=== PATIENT | female | born 1985 | race Hispanic/Latino ===

== ENCOUNTER 2022-03-15 21:18 | Emergency (ER) | payer SELFPAY ==
[2022-03-15] MEDS ORDERED: NA CHLORIDE 0.9% 1,000 ML ONE (22:01)
[2022-03-15 22:43] LABS: Absolute Lymphocytes (CBC) 2.6 K/uL (0.7-4.9); Lymphocytes % 44.8 % (15.3-44.8); MCV 82.3 fL (80-100); MPV 8.7 fL (7.6-11.3); RBC Red Blood Cell Count 4.61 M/uL (3.86-4.86)
[2022-03-15 22:54] LABS: Bilirubin Total 0.4 mg/dL (0.2-1.0); Potassium 3.8 mmol/L (3.5-5.1); Protein, Total 6.4 g/dL (6.4-8.2)
--- NOTE | 2022-03-16 00:10 | ER ---
Nurse's Notes [facility] Name: Magda Adams Age: 36 yrs Sex: Female : 1985 Arrival Date: 03/15/2022 Time: 21:23 Bed 4 Private MD: Diagnosis: Viral infection, unspecified;Upper abdominal pain, unspecified Presentation: 03/15 21:26 Chief complaint: Patient states: STOMACH PAIN FOR LONG WHILE, SHE TESTED NEGATIVE AT [address] FOR COVID DUE TO CONGESTION AND A SEVERE HEADACHE. Coronavirus screen: Vaccine status: Patient reports receiving the 2nd dose of the covid vaccine. Client denies travel out of the [place] in the last 14 days. congestion, headache, Client presents with at least one sign or symptom that may indicate coronavirus-19. Standard/surgical mask placed on the client. Ebola Screen: Patient negative for fever greater than or equal to 101.5 degrees Fahrenheit, and additional compatible Ebola Virus Disease symptoms. Initial Sepsis Screen: Does the patient meet any 2 criteria? No. Patient's initial sepsis screen is negative. Does the patient have a suspected source of infection? No. Patient's initial sepsis screen is negative. Risk Assessment: Do you want to hurt yourself or someone else? Patient reports no desire to harm self or others. Onset of symptoms is unknown. 21:26 Method Of Arrival: Ambulatory located within [facility] 21:26 Acuity: SHANNON 3 located within [facility] Triage Assessment: 21:31 General: Appears in no apparent distress. Behavior is calm, cooperative, appropriate located within [facility] for age. GI: Reports upper abdominal pain, nausea. Historical: - Allergies: 21:29 Aspirin; located within [facility] 21:29 Codeine; located within [facility] 21:29 Augmentin; located within [facility] - Home Meds: 21:29 phentermine 37.5 mg oral tab 1 tab once daily [Active]; alprazolam 1 mg/mL Oral conc 1 bh1 mL 3 times per day [Active]; Vitamin D 1 TAB Oral 50,000 unit daily [Active]; B12 Active 1,000 mcg oral chew [Active]; - PMHx: 21:29 Anxiety; located within [facility] - PSHx: 21:29 Cholecystectomy; section; located within [facility] - Immunization history:: Adult Immunizations up to date, Client reports receiving the 2nd dose of the Covid vaccine. - Social history:: Smoking status: Patient reports the use of cigarette tobacco products, smokes one-half pack cigarettes per day. Screenin:50 Abuse screen: Denies threats or abuse. Denies injuries from another. Nutritional aa9 screening: No deficits noted. Tuberculosis screening: No symptoms or risk factors identified. Fall Risk None identified. Assessment: 21:44 General: Appears in no apparent distress. uncomfortable, Behavior is calm, cooperative, aa9 anxious, States " I had 3 white claws yesterday, I think that made the pain worse. I took 4 200 mg ibuprofen at 4 PM today, It made the pain tolerable, it is now coming back again.". Pain: Complains of pain in right upper quadrant Pain currently is 7 out of 10 on a pain scale. Is chronic, Alleviated by not eating. 03/16 00:36 GI: Bowel sounds present X 4 quads. kl 00:36 GI: Abd is non tender. kl Vital Signs: 03/15 21:26 BP 126 / 44; Pulse 11; Resp 20; Temp 97.7; Pulse Ox 100% on R/A; Weight 106.59 kg; bh1 Height 5 ft. 4 in. (162.56 cm); Pain 7/10; 21:49 BP 122 / 66; Pulse 108; Resp 15 S; Pulse Ox 100% on R/A; Weight 106.59 kg (R); Height 5 aa9 ft. 2 in. (157.48 cm) (R); Pain 7/10; 03/16 00:34 BP 98 / 63; Pulse 74; Resp 16; Pulse Ox 99% on R/A; Pain 3/10; kl 03/15 21:49 Body Mass Index 42.98 (106.59 kg, 157.48 cm) aa9 ED Course: 03/15 21:23 Patient arrived in ED. bp1 21:29 Triage completed. bh1 21:32 Arm band placed on right wrist. bh1 21:33 May Harris FNP-C [facility]. kb 21:33 Rickey Odom MD is Attending Physician. kb 21:35 Jann Tapia, SEGUNDO is Primary Nurse. as6 21:50 Patient has correct armband on for positive identification. Bed in low position. Call aa9 light in reach. Side rails up X2. 22:25 Inserted saline lock: 18 gauge in right antecubital area, using aseptic technique. as6 Blood collected. 22:25 CBC with Diff Sent. 22:25 CMP Sent. as6 22:25 Lipase Sent. as 22:25 Strep Sent. as6 22:25 Flu Sent. as6 22: [place] Screen Profile Sent. as 22:25 COVID-19 SARS RT PCR (Document "Date of Onset" if Symptomatic) Sent. as6 03/16 00:34 No provider procedures requiring assistance completed. IV discontinued, intact, kl bleeding controlled, No redness/swelling at site. Pressure dressing applied. Administered Medications: 03/15 22:25 Drug: NS 0.9% 1000 ml Route: IV; Rate: 1 bolus; Site: right antecubital; as6 03/16 00:30 Drug: HYDROcodone-acetaminophen 5 mg-325 mg 1 tabs Route: PO; kl 00:35 Follow up: Response: No adverse reaction kl Medication: 00:36 VIS not applicable for this client. Outcome: 00:08 Discharge ordered by . kb 00:36 Discharged to home ambulatory. kl 00:36 Condition: improved 00:36 Discharge instructions given to patient, Instructed on discharge instructions, follow up and referral plans. Demonstrated understanding of instructions, follow-up care. 00:37 Patient left the ED. Signatures: May Harris, MILL HAND-C MILL HAND-CkBina Samson RN RN Loreto De Luna Ashby, RN RN as6 Monique Mccurdy RN RN aa9 Hicks, Barbara, RN RN 1 Corrections: (The following items were deleted from the chart) 03/15 21:46 21:44 GI: aa9 aa9 21:49 21:44 General: Appears in no apparent distress. uncomfortable, Behavior is calm, aa9 cooperative, anxious, aa9
--- NOTE | 2022-03-16 00:10 | EDPHYS ---
Physician Documentation [facility] Name: Magda Adams Age: 36 yrs Sex: Female : 1985 Arrival Date: 03/15/2022 Time: 21:23 Bed 4 Private MD: ED Physician Rickey Odom HPI: 03/16 00:07 This 36 yrs old Female presents to ER via Ambulatory with complaints of kb Abdominal Pain, Sore Throat, Fever, Headache. 00:07 The patient or guardian reports flu symptoms, low-grade fever, myalgias, no appetite. kb The patient has not experienced similar symptoms in the past. The patient has not recently seen a physician. 00:07 Onset: The symptoms/episode began/occurred yesterday. Severity of symptoms: At their kb worst the symptoms were mild, moderate, in the emergency department the symptoms are unchanged. Modifying factors: The symptoms are alleviated by nothing, the symptoms are aggravated by nothing. Associated signs and symptoms: Pertinent positives: fever, sore throat. Pt reports sore throat, headache, fever, malaise, chills for 2 days. Also reports upper abd pain that she has had for about a year. Historical: - Allergies: 03/15 21:29 Aspirin; bh1 21:29 Codeine; bh1 21:29 Augmentin; bh1 - Home Meds: 21:29 phentermine 37.5 mg oral tab 1 tab once daily [Active]; alprazolam 1 mg/mL Oral conc 1 bh1 mL 3 times per day [Active]; Vitamin D 1 TAB Oral 50,000 unit daily [Active]; B12 Active 1,000 mcg oral chew [Active]; - PMHx: 21:29 Anxiety; bh1 - PSHx: 21:29 Cholecystectomy; section; bh1 - Immunization history:: Adult Immunizations up to date, Client reports receiving the 2nd dose of the Covid vaccine. - Social history:: Smoking status: Patient reports the use of cigarette tobacco products, smokes one-half pack cigarettes per day. ROS: 03/16 00:06 Respiratory: Negative for shortness of breath, cough, wheezing, and pleuritic chest kb pain. Constitutional: Positive for body aches, chills, fatigue, fever, malaise. ENT: Positive for sore throat. Abdomen/GI: Positive for abdominal pain. Neuro: Positive for headache. All other systems are negative. Exam: 00:07 Constitutional: This is a well developed, well nourished patient who is awake, alert, kb and in no acute distress. Head/Face: Normocephalic, atraumatic. ENT: Moist Mucous membranes Cardiovascular: Regular rate and rhythm with a normal S1 and S2. No gallops, murmurs, or rubs. No pulse deficits. Respiratory: Respirations even and unlabored. No increased work of breathing. Talking in full sentences Abdomen/GI: Soft, non-tender. No distention Skin: Warm, dry with normal turgor. Normal color. MS/ Extremity: Pulses equal, no cyanosis. Neurovascular intact. Full, normal range of motion. Neuro: Awake and alert, GCS 15, oriented to person, place, time, and situation. Moves all extremities. Normal gait. Psych: Awake, alert, with orientation to person, place and time. Behavior, mood, and affect are within normal limits. Vital Signs: 03/15 21:26 BP 126 / 44; Pulse 11; Resp 20; Temp 97.7; Pulse Ox 100% on R/A; Weight 106.59 kg; bh1 Height 5 ft. 4 in. (162.56 cm); Pain 7/10; 21:49 BP 122 / 66; Pulse 108; Resp 15 S; Pulse Ox 100% on R/A; Weight 106.59 kg (R); Height 5 aa9 ft. 2 in. (157.48 cm) (R); Pain 7/10; 03/16 00:34 BP 98 / 63; Pulse 74; Resp 16; Pulse Ox 99% on R/A; Pain 3/10; kl 03/15 21:49 Body Mass Index 42.98 (106.59 kg, 157.48 cm) aa9 MDM: 03/15 21:33 Patient medically screened. kb 03/16 00:06 Data reviewed: vital signs, nurses notes. Data interpreted: Pulse oximetry: on room air kb is 100 %. Interpretation: normal. Counseling: I had a detailed discussion with the patient and/or guardian regarding: the historical points, exam findings, and any diagnostic results supporting the discharge/admit diagnosis, lab results, the need for outpatient follow up, a family practitioner, to return to the emergency department if symptoms worsen or persist or if there are any questions or concerns that arise at home. 03/15 21:43 Order name: CBC with Diff; Complete Time: 22:52 kb 03/15 21:43 Order name: CMP; Complete Time: 22:58 kb 03/15 21:43 Order name: Lipase; Complete Time: 22:58 kb 03/15 21:43 Order name: Strep; Complete Time: 23:01 kb 03/15 21:43 Order name: Flu; Complete Time: 23:01 kb 03/15 21:43 Order name: [place] Screen Profile; Complete Time: 22:52 kb 03/15 21:43 Order name: IV Saline Lock; Complete Time: 22:25 kb 03/15 21:43 Order name: Labs collected and sent; Complete Time: 22:25 kb 03/15 21:43 Order name: COVID-19 SARS RT PCR (Document "Date of Onset" if Symptomatic); Complete kb Time: 22:52 03/15 23:01 Order name: Throat Culture EDMS 03/16 00:23 Order name: Urine Dipstick-Ancillary; Complete Time: 00:31 EDMS Administered Medications: 03/15 22:25 Drug: NS 0.9% 1000 ml Route: IV; Rate: 1 bolus; Site: right antecubital; as6 03/16 00:30 Drug: HYDROcodone-acetaminophen 5 mg-325 mg 1 tabs Route: PO; kl 00:35 Follow up: Response: No adverse reaction kl Disposition Summary: 03/16/22 00:08 Discharge Ordered Location: Home kb Condition: Stable kb Diagnosis - Viral infection, unspecified kb - Upper abdominal pain, unspecified kb Followup: kb - With: Emergency Department - When: As needed - Reason: Worsening of condition Followup: kb - With: Private Physician - When: 2 - 3 days - Reason: Recheck today's complaints, Continuance of care, Re-evaluation by your physician Discharge Instructions: - Discharge Summary Sheet kb - Abdominal Pain, Adult, [id number] kb - Viral Illness, Adult kb Forms: - Medication Reconciliation Form kb - Thank You Letter kb - Antibiotic Education kb - Prescription Opioid Use kb Signatures: Dispatcher [employer] EDMN May Harris FNP-C FNP-Bina Mandujano RN RN Jann Cortés RN RN as6 Randall, Ramya, RN RN bh1
[2022-03-16 00:23] LABS: Urine Blood Trace-intact (Negative); Urine Glucose Negative (Negative); Urine Protein Negative (Negative); Urine Specific Gravity >=1.030 (1.005-1.030); Urine pH 5.5 (5.0-7.0)
[2022-03-16] MEDS ORDERED: HYDROCODONE/APAP 5/325 MG TAB ONE (00:39)
[2022-03-16 00:52] VITALS: TEMP 97.7
[2022-03-16 00:56] VITALS: BP 98/63; O2SAT 99
== END 2022-03-16 00:37 | disposition home or self-care (01) ==
LOC: ER 21:18
DX: R10.10 Upper abdominal pain, unspecified (principal); B34.9 Viral infection, unspecified; Z20.822 Contact with and (suspected) exposure to COVID-19; F41.9 Anxiety disorder, unspecified; F17.210 Nicotine dependence, cigarettes, uncomplicated; Z88.1 Allergy status to other antibiotic agents; Z88.5 Allergy status to narcotic agent; Z88.6 Allergy status to analgesic agent
CPT/HCPCS: 36415; 80053; 81003; 83690; 85025; 86308; 87070; 87081; 87804; 99283; J7030; U0003